=== PATIENT | female | born 1950 | race Caucasian/White ===

== ENCOUNTER → 2016-10-03 | Outpatient (CLI) | payer OTHER ==
[~2016-10-03] MED LIST: ATEN25TA PO; CYCL-259 PO; DICL75TA2 PO; GABA300C10 PO; HYDR1TAB14 PO; HYDR25TA6 PO; LEVO100T PO; METH500T7 PO; OMEP-110 PO; OXYC-302 PO; SIMV10TA3 PO
== END | disposition home or self-care (01) ==
LOC: LAB 10:22
PROVIDERS: ATTEND Internal Medicine Endocrinology, Diabetes & Metabolism
DX: E89.0 Postprocedural hypothyroidism (principal); R73.01 Impaired fasting glucose
CPT/HCPCS: 36415; 83036; 84443

== ENCOUNTER → 2017-02-06 | Outpatient (CLI) | payer OTHER | END | disposition home or self-care (01) | LOC: LAB 06:56 | PROVIDERS: ATTEND Internal Medicine Endocrinology, Diabetes & Metabolism | DX: E89.0 Postprocedural hypothyroidism (principal); R73.01 Impaired fasting glucose | CPT/HCPCS: 36415; 83036; 84439; 84443 ==

== ENCOUNTER 2017-03-06 06:02 | Day surgery (SDC) | payer OTHER ==
[~2017-03-06] VITALS: Ht 152.4 cm; Wt 95.9 kg
[~2017-03-06 06:02] MED LIST changes: +ACET-709 PO; +B CO PO; +CALC1CAP8 PO; +CHOL100011 PO; +IBUP200T64 PO; +LEVO112T4 PO; +OMEP20TA62 PO; +TURM500C4 PO; +UBID1CAP43 PO
[2017-03-06] MEDS ORDERED: LIDOCAINE 1%, 2ML ONE (06:48)
[2017-03-06] MEDS ORDERED: LACTATED RINGERS 1,000 ML IV SCH (06:58)
[2017-03-06 06:59] VITALS: BP 147/85
[2017-03-06] MEDS ORDERED: LIDOCAINE 1%, 2ML SQ PRN (07:00)
[2017-03-06] MEDS ORDERED: MIDAZOLAM 1 MG/ML, 2ML ONE (07:58)
[2017-03-06] MEDS ORDERED: FENTANYL PF 100 MCG/2ML ONE ×2 (07:58→09:39)
[2017-03-06] MEDS ORDERED: PROPOFOL 10 MG/ML, 20ML ONE (07:59)
[2017-03-06] MEDS ORDERED: METOCLOPRAMIDE 5 MG/ML, 2ML ONE (08:14)
[2017-03-06] MEDS ORDERED: DEXAMETHASONE 4 MG/ML, 1ML ONE (08:14)
[2017-03-06] MEDS ORDERED: CEFAZOLIN 1,000 MG ONE ×2 (08:14)
[2017-03-06] MEDS ORDERED: ONDANSETRON 2MG/ML, 2ML ONE (08:14)
[2017-03-06] MEDS ORDERED: ROCURONIUM 10 MG/ML ONE (08:14)
[2017-03-06] MEDS ORDERED: PROMETHAZINE 25 MG/ML, 1ML IV PRN (08:30)
[2017-03-06] MEDS ORDERED: MEPERIDINE/PF 25MG/0.5ML IVPush PRN (08:30)
[2017-03-06] MEDS ORDERED: ONDANSETRON 2MG/ML, 2ML IVPush PRN (08:30)
[2017-03-06] MEDS ORDERED: ALBUTEROL SULFATE 2.5 MG/3 ML NPPB PRN (08:30)
[2017-03-06] MEDS ORDERED: ACETAMINOPHEN 325 MG TABLET PO PRN (08:30)
[2017-03-06] MEDS ORDERED: EPHEDRINE 50 MG/ML, 1ML IVPush PRN (08:30)
[2017-03-06] MEDS ORDERED: METOPROLOL 1 MG/ML, 5ML IV PRN (08:30)
[2017-03-06] MEDS ORDERED: LABETALOL 5MG/ML, 20ML IV PRN (08:30)
[2017-03-06] MEDS ORDERED: OXYcodone 5 MG/5 ML ORAL.SOL UDC PO PRN (08:30)
[2017-03-06] MEDS ORDERED: hydrALAzine 20 MG/ML, 1ML IV PRN (08:30)
[2017-03-06] MEDS ORDERED: HYDROmorphone 1 MG/ML, 1ML IV PRN (08:30)
[2017-03-06] MEDS ORDERED: GLYCOPYRROLATE 0.2MG/1ML, 5ML ONE (08:56)
[2017-03-06] MEDS ORDERED: NEOSTIGMINE 1 MG/ML, 10ML ONE (08:56)
[2017-03-06] MEDS ORDERED: ROPIvacaine/PF 0.5%, 30 ML INFIL ONE (09:01)
[2017-03-06] MEDS ORDERED: NEOSPORIN OINT, 15GM TP ONE (09:05)
[2017-03-06] MEDS ORDERED: OXYcodone 5 MG/5 ML ORAL.SOL UDC ONE (09:39)
[2017-03-06] MEDS ORDERED: ACETAMINOPHEN 650 MG/20.3 ML UDC ONE (09:39)
[2017-03-06] MEDS: FENTANYL PF 100 MCG/2ML IV PRN ×4 (09:46→10:15)
[2017-03-06] MEDS ORDERED: KETOROLAC 30 MG/1 ML ONE (10:55)
[2017-03-06] MEDS ORDERED: KETOROLAC 30 MG/1 ML IVPush ONE (11:00)
== END 2017-03-06 11:45 ==
LOC: OUT 06:02
PROVIDERS: ATTEND Orthopaedic Surgery
DX: S83.241A Other tear of medial meniscus, current injury, right knee, initial encounter (principal); S83.281A Other tear of lateral meniscus, current injury, right knee, initial encounter; E03.9 Hypothyroidism, unspecified; I10 Essential (primary) hypertension; E66.9 Obesity, unspecified; Z68.41 Body mass index [BMI] 40.0-44.9, adult; X58.XXXA Exposure to other specified factors, initial encounter; Y93.89 Activity, other specified; Y92.89 Other specified places as the place of occurrence of the external cause
CPT/HCPCS: 29880; J0690; J1100; J1885; J2250; J2405; J2704; J2710; J2765; J2795; J3010; J3490; J7120

== ENCOUNTER → 2017-05-28 | Outpatient (CLI) | payer OTHER ==
[2017-05-28 07:16] LABS: BASOPHILS # (AUTO) 0.05 x10^3/uL (0-0.1); BASOPHILS % (AUTO) 1 % (0-1); EOSINOPHILS # (AUTO) 0.17 x10^3/uL (0-0.4); EOSINOPHILS % (AUTO) 2 % (1-7); LYMPHOCYTES # (AUTO) 2.54 x10^3/uL (1-3.4); LYMPHOCYTES % (AUTO) 27 % (22-44); MD NO; MEAN CORPUSCULAR HEMOGLOBIN 31.8 pg (27.0-34.8); MEAN CORPUSCULAR HGB CONC 33.8 g/dL (32.4-35.8); MEAN CORPUSCULAR VOLUME 94.1 fL (80-100); MEAN PLATELET VOLUME 8.5 fL (7.4-10.4); MONOCYTES # (AUTO) 0.61 x10^3/uL (0.2-0.8); MONOCYTES % (AUTO) 7 % (2-9); NEUTROPHILS % (AUTO) 64 % (42-75); PLATELET COUNT 289 x10^3/uL (130-400); RED CELL DISTRIBUTION WIDTH 12.7 % (9.6-15.2)
[2017-05-28 07:30] LABS: ALANINE AMINOTRANSFERASE 23 U/L (12-78); ALBUMIN 3.7 g/dL (3.4-5.0); ANION GAP 5 mmol/L (5-15); CALCIUM 8.8 mg/dL (8.5-10.1); CHLORIDE 102 mmol/L (98-107); CHOLESTEROL, TOTAL 164 mg/dL (140-239)
[2017-05-28 07:32] LABS: ALKALINE PHOSPHATASE 72 U/L (45-117); BILIRUBIN,TOTAL 0.8 mg/dL (0.2-1.0); CHOL/HDL RATIO 3.2; HDL CHOL % 32 % (28-40); HDL CHOLESTEROL (DIRECT) 52 mg/dL (40-60); LDL CHOLESTEROL,CALCULATED 90 mg/dL (54-169); LDL/HDL RATIO 1.7 (0.5-3.0); TOTAL PROTEIN 7.2 g/dL (6.4-8.2); TRIGLYCERIDES 108 mg/dL (50-200); VLDL CHOLESTEROL 22 mg/dL (0-25)
[2017-05-28 07:44] LABS: HEMOGLOBIN A1C 6.6 % (4.2-6.3)
[2017-05-28 08:27] LABS: MICROSCOPIC AUTO
== END | disposition home or self-care (01) ==
LOC: LAB 07:00
PROVIDERS: ATTEND Family Medicine
DX: Z00.00 Encounter for general adult medical examination without abnormal findings (principal); E78.5 Hyperlipidemia, unspecified; I10 Essential (primary) hypertension
CPT/HCPCS: 36415; 80053; 80061; 81001; 83036; 85025

== ENCOUNTER → 2017-10-09 | Outpatient (CLI) | payer OTHER ==
[2017-10-09 08:20] LABS: FREE T4 (FREE THYROXINE) 1.3 ng/dL (0.76-1.46); THYROID STIMULATING HORMONE 0.869 mIU/L (0.358-3.740)
[2017-10-09 08:51] LABS: HEMOGLOBIN A1C 6.8 % (4.2-6.3)
== END | disposition home or self-care (01) ==
LOC: LAB 07:48
PROVIDERS: ATTEND Internal Medicine Endocrinology, Diabetes & Metabolism
DX: E89.0 Postprocedural hypothyroidism (principal); R73.01 Impaired fasting glucose; I10 Essential (primary) hypertension; E78.5 Hyperlipidemia, unspecified
CPT/HCPCS: 36415; 83036; 84439; 84443

== ENCOUNTER → 2017-11-30 | Outpatient (CLI) | payer OTHER | END | disposition home or self-care (01) | LOC: CFH 13:12 | PROVIDERS: ATTEND Registered Nurse Registered Nurse First Assistant | DX: M99.13 Subluxation complex (vertebral) of lumbar region (principal); M47.817 Spondylosis without myelopathy or radiculopathy, lumbosacral region; M48.02 Spinal stenosis, cervical region | CPT/HCPCS: 72114; 72148 ==

== ENCOUNTER → 2018-01-31 | Outpatient (CLI) | payer OTHER ==
[2018-01-31 07:50] LABS: FREE T4 (FREE THYROXINE) 1.35 ng/dL (0.76-1.46); THYROID STIMULATING HORMONE 0.884 mIU/L (0.358-3.740)
[2018-01-31 07:57] LABS: HEMOGLOBIN A1C 6.2 % (4.2-6.3)
== END | disposition home or self-care (01) ==
LOC: LAB 07:06
PROVIDERS: ATTEND Internal Medicine Endocrinology, Diabetes & Metabolism
DX: E11.65 Type 2 diabetes mellitus with hyperglycemia (principal); E89.0 Postprocedural hypothyroidism
CPT/HCPCS: 36415; 83036; 84439; 84443

== ENCOUNTER → 2018-03-08 | Outpatient (CLI) | payer OTHER ==
[2018-03-08 14:44] LABS: BASOPHILS # (AUTO) 0.03 x10^3/uL (0-0.1); BASOPHILS % (AUTO) 0 % (0-1); EOSINOPHILS # (AUTO) 0.25 x10^3/uL (0-0.4); EOSINOPHILS % (AUTO) 3 % (1-7); LYMPHOCYTES # (AUTO) 2.23 x10^3/uL (1-3.4); LYMPHOCYTES % (AUTO) 28 % (22-44); MD NO; MEAN CORPUSCULAR HEMOGLOBIN 32.8 pg (27.0-34.8); MEAN CORPUSCULAR HGB CONC 34.4 g/dL (32.4-35.8); MEAN CORPUSCULAR VOLUME 95.3 fL (80-100); MEAN PLATELET VOLUME 8.8 fL (7.4-10.4); MONOCYTES % (AUTO) 6 % (2-9); NEUTROPHILS # (AUTO) 4.92 x10^3/uL (1.8-6.8); NEUTROPHILS % (AUTO) 62 % (42-75); PLATELET COUNT 293 x10^3/uL (130-400); RED CELL DISTRIBUTION WIDTH 12.7 % (9.6-15.2)
[2018-03-08 14:49] LABS: INTERNATIONAL NORMALIZED RATIO 0.95 (0.93-1.1); PROTHROMBIN TIME 9.9 Seconds (9.6-11.5)
[2018-03-08 14:55] LABS: CHLORIDE 104 mmol/L (98-107)
[2018-03-08 14:56] LABS: ALANINE AMINOTRANSFERASE 33 U/L (12-78); ALBUMIN 3.6 g/dL (3.4-5.0); ANION GAP 9 mmol/L (5-15); CALCIUM 8.7 mg/dL (8.5-10.1); CREATININE 0.72 mg/dL (0.55-1.02)
[2018-03-08 14:58] LABS: ALKALINE PHOSPHATASE 71 U/L (45-117); BILIRUBIN,TOTAL 0.4 mg/dL (0.2-1.0); TOTAL PROTEIN 7.4 g/dL (6.4-8.2)
[2018-03-08 15:41] LABS: CULTURE INDICATED? YES; MICROSCOPIC INDICATED
== END | disposition home or self-care (01) ==
LOC: STAR 13:20
PROVIDERS: ATTEND Neurological Surgery
DX: Z01.818 Encounter for other preprocedural examination (principal); M48.061 Spinal stenosis, lumbar region without neurogenic claudication; I10 Essential (primary) hypertension
CPT/HCPCS: 36415; 71046; 80053; 81001; 85025; 85610; 85730; 87086; 93005

== ENCOUNTER → 2018-03-13 | Outpatient (CLI) | payer OTHER | END | disposition home or self-care (01) | LOC: CFH 13:30 | PROVIDERS: ATTEND Family Medicine | DX: Z12.31 Encounter for screening mammogram for malignant neoplasm of breast (principal); Z80.3 Family history of malignant neoplasm of breast | CPT/HCPCS: 77067 ==

== ENCOUNTER 2018-03-21 12:24 | Observation (INO) | payer OTHER ==
[~2018-03-21] VITALS: Ht 152.4 cm; Wt 100.6 kg
[~2018-03-21 12:24] MED LIST changes: +BACITRACIN 50,000 UNIT ONE; +BUPIVACAINE/PF-EPI 0.25% 1:200K ONE; +THROMBIN 5,000 UNIT VIAL TP ONE; +VANCOMYCIN 1,000 MG ONE
[2018-03-21] MEDS ORDERED: LACTATED RINGERS 1,000 ML IV SCH (13:04)
[2018-03-21 13:09] VITALS: BP 137/96
[2018-03-21] MEDS ORDERED: FENTANYL PF 250 MCG/5ML ONE (16:31)
[2018-03-21] MEDS ORDERED: MIDAZOLAM 1 MG/ML, 2ML ONE (16:31)
[2018-03-21] MEDS ORDERED: ROCURONIUM 10 MG/ML,10ML ONE (17:07)
[2018-03-21] MEDS ORDERED: ONDANSETRON 2MG/ML, 2ML ONE (17:07)
[2018-03-21] MEDS ORDERED: PROPOFOL 10 MG/ML, 20ML ONE (17:07)
[2018-03-21] MEDS ORDERED: DEXAMETHASONE 4 MG/ML, 1ML ONE (17:07)
[2018-03-21] MEDS ORDERED: CEFAZOLIN 1,000 MG ONE (17:07)
[2018-03-21] MEDS ORDERED: ACETAMINOPHEN 325 MG TABLET PO PRN (18:30)
[2018-03-21] MEDS ORDERED: KETOROLAC 30 MG/1 ML IV PRN (18:30)
[2018-03-21] MEDS ORDERED: LABETALOL 5MG/ML, 20ML IV PRN (18:30)
[2018-03-21] MEDS ORDERED: HYDROmorphone 1 MG/ML, 1ML IV PRN (18:30)
[2018-03-21] MEDS ORDERED: hydrALAzine 20 MG/ML, 1ML IV PRN (18:30)
[2018-03-21] MEDS ORDERED: LORazepam 2 MG/ML, 1ML IVPush PRN (18:30)
[2018-03-21] MEDS ORDERED: ALBUTEROL SULFATE 2.5 MG/3 ML NPPB PRN (18:30)
[2018-03-21] MEDS ORDERED: PROMETHAZINE 25 MG/ML, 1ML IV PRN (18:30)
[2018-03-21] MEDS ORDERED: OXYcodone 5 MG/5 ML ORAL.SOL UDC PO PRN (18:30)
[2018-03-21] MEDS ORDERED: MEPERIDINE/PF 25MG/0.5ML IVPush PRN (18:30)
[2018-03-21] MEDS ORDERED: SUGAMMADEX 200 MG/2 ML IVPush ONE (18:59)
[2018-03-21] MEDS ORDERED: HYDROcodone/APAP 10/325 MG TABLET PO PRN (19:00)
[2018-03-21] MEDS ORDERED: MEPERIDINE/PF 100 MG/ML IM PRN (19:00)
[2018-03-21] MEDS ORDERED: DIPHENHYDRAMINE 50 MG/ML, 1ML IVPush PRN (19:00)
[2018-03-21] MEDS ORDERED: HYDROmorphone 1 MG/ML, 1ML IVPush PRN (19:00)
[2018-03-21] MEDS ORDERED: ONDANSETRON 2MG/ML, 2ML IVPush PRN (19:00)
[2018-03-21] MEDS ORDERED: BISACODYL 10 MG SUPP PR PRN (19:00)
[2018-03-21] MEDS ORDERED: MAGNESIUM HYDROXIDE 8%, 30ML UDC PO PRN (19:00)
[2018-03-21] MEDS ORDERED: PROMETHAZINE 25 MG/ML, 1ML IM PRN (19:00)
[2018-03-21] MEDS ORDERED: PHARMACY MAY ADJ FOR RENAL FX MC PRN (19:00)
[2018-03-21] MEDS ORDERED: OXYcodone 5 MG/5 ML ORAL.SOL UDC ONE (19:04)
[2018-03-21] MEDS ORDERED: FENTANYL PF 100 MCG/2ML ONE (19:04)
[2018-03-21] MEDS ORDERED: ACETAMINOPHEN 650 MG/20.3 ML UDC ONE (19:04)
[2018-03-21] MEDS ORDERED: MEPERIDINE/PF 50 MG/ML ONE (19:05)
[2018-03-21] MEDS: FENTANYL PF 100 MCG/2ML IV PRN ×2 (19:29→19:42)
[2018-03-21] MEDS: SODIUM CHLORIDE FLUSH 10ML SYR IVF SCH (21:00)
[2018-03-22] MEDS: CEFAZOLIN PMX 1GM/50ML 50 ML IVPB SCH ×2 (00:18→09:43)
[2018-03-22] MEDS: NS + 20MEQ KCL 1,000 ML IV SCH ×2 (00:18→05:00)
[2018-03-22] MEDS: GABAPENTIN 300 MG CAPSULE PO SCH ×2 (00:19→08:08)
[2018-03-22] MEDS: OXYcodone/APAP 5/325MG TABLET PO PRN ×3 (00:22→10:22)
[2018-03-22 00:48] VITALS: BP 125/67
[2018-03-22 05:12] VITALS: BP 121/69
[2018-03-22 07:35] VITALS: BP 124/58
[2018-03-22] MEDS: SODIUM CHLORIDE FLUSH 10ML SYR IVF SCH (08:09)
[2018-03-22] MEDS ORDERED: ATENOLOL 25 MG TABLET PO SCH (09:00)
[2018-03-22] MEDS ORDERED: HYDROCHLOROTHIAZIDE 25 MG TABLET PO SCH (09:00)
[2018-03-22] MEDS ORDERED: SENNA/DOCUSATE TABLET PO SCH (09:00)
[2018-03-22] MEDS ORDERED: OXYC-302 PO (09:27)
[2018-03-22] MEDS ORDERED: TIZA2CAP2 PO (09:28)
[2018-03-22] MEDS ORDERED: POLY17PO5 PO (09:29)
[2018-03-22] MEDS ORDERED: CEFAZOLIN PMX 1GM/50ML 50 ML ONE (09:42)
== END 2018-03-22 10:55 | disposition home or self-care (01) ==
LOC: OUT 12:24 → ORIP 18:32 → 4NOR 20:10 → DCLOUNGE 03-22 10:10
PROVIDERS: ADMIT Neurological Surgery; ATTEND Neurological Surgery
DX: M48.07 Spinal stenosis, lumbosacral region (principal); M48.062 Spinal stenosis, lumbar region with neurogenic claudication; I10 Essential (primary) hypertension; E78.00 Pure hypercholesterolemia, unspecified; M19.90 Unspecified osteoarthritis, unspecified site; M51.37 Other intervertebral disc degeneration, lumbosacral region; Z79.899 Other long term (current) drug therapy; Z87.891 Personal history of nicotine dependence
CPT/HCPCS: 36415; 63047; 63048; 72100; 84132; 96365; 97161; 97166; 97535; G0378; J0690; J1100; J2175; J2250; J2405; J2704; J3010; J3370; J3480; J7120

== ENCOUNTER → 2018-05-22 | Outpatient (CLI) | payer OTHER ==
[~2018-05-22] MED LIST changes: -BACITRACIN 50,000 UNIT ONE; -BUPIVACAINE/PF-EPI 0.25% 1:200K ONE; -DICL75TA2 PO; +DICL75TA3 PO; +POLY17PO5 PO; -THROMBIN 5,000 UNIT VIAL TP ONE; +TIZA2CAP2 PO; -VANCOMYCIN 1,000 MG ONE
[2018-05-22 07:13] LABS: BASOPHILS # (AUTO) 0.04 x10^3/uL (0-0.1); BASOPHILS % (AUTO) 1 % (0-1); EOSINOPHILS # (AUTO) 0.22 x10^3/uL (0-0.4); EOSINOPHILS % (AUTO) 3 % (1-7); LYMPHOCYTES # (AUTO) 2.04 x10^3/uL (1-3.4); LYMPHOCYTES % (AUTO) 25 % (22-44); MD NO; MEAN CORPUSCULAR HEMOGLOBIN 31.3 pg (27.0-34.8); MEAN CORPUSCULAR HGB CONC 33.3 g/dL (32.4-35.8); MEAN PLATELET VOLUME 8.7 fL (7.4-10.4); MONOCYTES # (AUTO) 0.48 x10^3/uL (0.2-0.8); MONOCYTES % (AUTO) 6 % (2-9); NEUTROPHILS # (AUTO) 5.31 x10^3/uL (1.8-6.8); NEUTROPHILS % (AUTO) 66 % (42-75); PLATELET COUNT 307 x10^3/uL (130-400); RED BLOOD COUNT 4.19 x10^6/uL (3.82-5.3); RED CELL DISTRIBUTION WIDTH 12.4 % (9.6-15.2)
[2018-05-22 07:26] LABS: ALANINE AMINOTRANSFERASE 25 U/L (12-78); ANION GAP 7 mmol/L (5-15); CALCIUM 9.2 mg/dL (8.5-10.1); CHLORIDE 105 mmol/L (98-107); CHOLESTEROL, TOTAL 159 mg/dL (140-239); CREATININE 0.68 mg/dL (0.55-1.02); TRIGLYCERIDES 93 mg/dL (50-200); VLDL CHOLESTEROL 19 mg/dL (0-25)
[2018-05-22 07:36] LABS: ALKALINE PHOSPHATASE 70 U/L (45-117); BILIRUBIN,TOTAL 0.5 mg/dL (0.2-1.0); CHOL/HDL RATIO 3.1; HDL CHOL % 32 % (28-40); HDL CHOLESTEROL (DIRECT) 51 mg/dL (40-60); LDL CHOLESTEROL,CALCULATED 89 mg/dL (54-169); LDL/HDL RATIO 1.7 (0.5-3.0); TOTAL PROTEIN 7.3 g/dL (6.4-8.2)
[2018-05-22 07:53] LABS: HEMOGLOBIN A1C 6.7 % (4.2-6.3)
[2018-05-22 08:01] LABS: MICROSCOPIC AUTO
== END | disposition home or self-care (01) ==
LOC: LAB 06:58
PROVIDERS: ATTEND Family Medicine
DX: Z00.00 Encounter for general adult medical examination without abnormal findings (principal); D64.9 Anemia, unspecified; R53.83 Other fatigue; E55.9 Vitamin D deficiency, unspecified
CPT/HCPCS: 36415; 80053; 80061; 81001; 83036; 84443; 85025

== ENCOUNTER → 2018-06-04 | Outpatient (CLI) | payer OTHER ==
[2018-06-04 10:58] LABS: FREE T4 (FREE THYROXINE) 1.34 ng/dL (0.76-1.46); THYROID STIMULATING HORMONE 1.99 mIU/L (0.358-3.740)
[2018-06-04 11:09] LABS: HEMOGLOBIN A1C 6.6 % (4.2-6.3)
== END | disposition home or self-care (01) ==
LOC: LAB 10:13
PROVIDERS: ATTEND Internal Medicine Endocrinology, Diabetes & Metabolism
DX: E11.65 Type 2 diabetes mellitus with hyperglycemia (principal); E89.0 Postprocedural hypothyroidism
CPT/HCPCS: 36415; 83036; 84439; 84443

== ENCOUNTER → 2018-09-04 | Outpatient (CLI) | payer OTHER ==
[2018-09-04 07:40] LABS: FREE T4 (FREE THYROXINE) 1.32 ng/dL (0.76-1.46); THYROID STIMULATING HORMONE 1.78 mIU/L (0.358-3.740)
[2018-09-04 08:36] LABS: HEMOGLOBIN A1C 6.3 % (4.2-6.3)
== END | disposition home or self-care (01) ==
LOC: LAB 07:03
PROVIDERS: ATTEND Internal Medicine Endocrinology, Diabetes & Metabolism
DX: E11.65 Type 2 diabetes mellitus with hyperglycemia (principal); E89.0 Postprocedural hypothyroidism
CPT/HCPCS: 36415; 83036; 84439; 84443

== ENCOUNTER 2018-12-04 07:06 | Outpatient (CLI) | payer OTHER ==
[~2018-12-04 07:06] MED LIST changes: -HYDR1TAB14 PO; +HYDR1TAB15 PO
[2018-12-04 07:45] LABS: FREE T4 (FREE THYROXINE) 1.08 ng/dL (0.76-1.46)
[2018-12-04 10:02] LABS: HEMOGLOBIN A1C 6.7 % (4.2-6.3)
== END 2018-12-04 23:59 | disposition home or self-care (01) ==
LOC: LAB 07:06
PROVIDERS: ATTEND Physician Assistant Medical
DX: E89.0 Postprocedural hypothyroidism (principal); E11.65 Type 2 diabetes mellitus with hyperglycemia
CPT/HCPCS: 36415; 83036; 84439; 84443

== ENCOUNTER → 2019-03-20 | Outpatient (CLI) | payer OTHER ==
[2019-03-20 07:36] LABS: FREE T4 (FREE THYROXINE) 1.35 ng/dL (0.76-1.46)
[2019-03-20 08:03] LABS: HEMOGLOBIN A1C 6.2 % (4.2-6.3)
== END | disposition home or self-care (01) ==
LOC: LAB 07:04
PROVIDERS: ATTEND Internal Medicine Endocrinology, Diabetes & Metabolism
DX: E89.0 Postprocedural hypothyroidism (principal); E11.65 Type 2 diabetes mellitus with hyperglycemia
CPT/HCPCS: 36415; 83036; 84439; 84443

== ENCOUNTER → 2019-03-26 | Outpatient (CLI) | payer OTHER | END | disposition home or self-care (01) | LOC: CFH 13:17 | PROVIDERS: ATTEND Family Medicine | DX: Z12.31 Encounter for screening mammogram for malignant neoplasm of breast (principal); N64.89 Other specified disorders of breast | CPT/HCPCS: 77067 ==

== ENCOUNTER 2019-06-18 07:16 | Outpatient (CLI) | payer OTHER ==
[~2019-06-18 07:16] MED LIST changes: +SIMV10TA18 PO; -SIMV10TA3 PO
[2019-06-18 07:37] LABS: BASOPHILS # (AUTO) 0.04 x10^3/uL (0-0.1); BASOPHILS % (AUTO) 0 % (0-1); EOSINOPHILS # (AUTO) 0.27 x10^3/uL (0-0.4); EOSINOPHILS % (AUTO) 3 % (1-7); LYMPHOCYTES # (AUTO) 2.45 x10^3/uL (1-3.4); LYMPHOCYTES % (AUTO) 27 % (22-44); MD NO; MEAN CORPUSCULAR HEMOGLOBIN 31.8 pg (27.0-34.8); MEAN CORPUSCULAR HGB CONC 33.6 g/dL (32.4-35.8); MEAN CORPUSCULAR VOLUME 94.7 fL (80-100); MEAN PLATELET VOLUME 8.4 fL (7.4-10.4); MONOCYTES # (AUTO) 0.55 x10^3/uL (0.2-0.8); MONOCYTES % (AUTO) 6 % (2-9); NEUTROPHILS # (AUTO) 5.83 x10^3/uL (1.8-6.8); NEUTROPHILS % (AUTO) 64 % (42-75); PLATELET COUNT 332 x10^3/uL (130-400); RED BLOOD COUNT 4.32 x10^6/uL (3.82-5.3); RED CELL DISTRIBUTION WIDTH 13.1 % (9.6-15.2)
[2019-06-18 07:54] LABS: FREE T4 (FREE THYROXINE) 1.29 ng/dL (0.76-1.46)
[2019-06-18 08:17] LABS: ALANINE AMINOTRANSFERASE 23 U/L (12-78); ALBUMIN 3.9 g/dL (3.4-5.0); ANION GAP 5 mmol/L (5-15); CALCIUM 9.2 mg/dL (8.5-10.1); CHLORIDE 104 mmol/L (98-107)
[2019-06-18 08:20] LABS: ALKALINE PHOSPHATASE 73 U/L (45-117); BILIRUBIN,TOTAL 0.7 mg/dL (0.2-1.0); CHOL/HDL RATIO 2.9; CHOLESTEROL, TOTAL 159 mg/dL (140-239); CREATININE 0.65 mg/dL (0.55-1.02); HDL CHOL % 35 % (28-40); HDL CHOLESTEROL (DIRECT) 55 mg/dL (40-60); LDL CHOLESTEROL,CALCULATED 87 mg/dL (54-169); LDL/HDL RATIO 1.6 (0.5-3.0); TOTAL PROTEIN 7.5 g/dL (6.4-8.2); TRIGLYCERIDES 84 mg/dL (50-200); VLDL CHOLESTEROL 17 mg/dL (0-25)
== END 2019-06-18 23:59 | disposition home or self-care (01) ==
LOC: LAB 07:16
PROVIDERS: ATTEND Internal Medicine Endocrinology, Diabetes & Metabolism
DX: I10 Essential (primary) hypertension (principal); E11.65 Type 2 diabetes mellitus with hyperglycemia; E03.9 Hypothyroidism, unspecified; E78.00 Pure hypercholesterolemia, unspecified
CPT/HCPCS: 36415; 80053; 80061; 83036; 84439; 84443; 85025

== ENCOUNTER → 2019-06-27 | Outpatient (CLI) | payer OTHER ==
[~2019-06-27] MED LIST changes: +METF500T17 PO
[2019-06-27 14:43] LABS: INTERNATIONAL NORMALIZED RATIO 0.96 (0.93-1.1); PROTHROMBIN TIME 10.2 Seconds (9.6-11.5)
[2019-06-27 14:54] LABS: MICROSCOPIC AUTO
[2019-06-27 14:57] LABS: CULTURE INDICATED? YES
== END | disposition home or self-care (01) ==
LOC: STAR 13:35
PROVIDERS: ATTEND Neurological Surgery
DX: Z01.818 Encounter for other preprocedural examination (principal); M43.16 Spondylolisthesis, lumbar region
CPT/HCPCS: 36415; 71046; 81001; 85610; 85730; 87086; 93005

== ENCOUNTER → 2019-06-30 | Outpatient (CLI) | payer OTHER | END | disposition home or self-care (01) | LOC: CFH 12:54 | PROVIDERS: ATTEND Nurse Practitioner Family | DX: M85.88 Other specified disorders of bone density and structure, other site (principal); N95.8 Other specified menopausal and perimenopausal disorders | CPT/HCPCS: 77080 ==

== ENCOUNTER → 2019-09-05 | Outpatient (CLI) | payer OTHER ==
[2019-09-05 10:09] LABS: MICROSCOPIC NOT IND
[2019-09-05 10:10] LABS: BASOPHILS # (AUTO) 0.04 x10^3/uL (0-0.1); BASOPHILS % (AUTO) 1 % (0-1); EOSINOPHILS # (AUTO) 0.24 x10^3/uL (0-0.4); EOSINOPHILS % (AUTO) 3 % (1-7); LYMPHOCYTES # (AUTO) 2.02 x10^3/uL (1-3.4); LYMPHOCYTES % (AUTO) 24 % (22-44); MD NO; MEAN CORPUSCULAR HEMOGLOBIN 32.2 pg (27.0-34.8); MEAN CORPUSCULAR HGB CONC 33.7 g/dL (32.4-35.8); MEAN CORPUSCULAR VOLUME 95.5 fL (80-100); MEAN PLATELET VOLUME 9.3 fL (7.4-10.4); MONOCYTES # (AUTO) 0.56 x10^3/uL (0.2-0.8); MONOCYTES % (AUTO) 7 % (2-9); NEUTROPHILS # (AUTO) 5.51 x10^3/uL (1.8-6.8); NEUTROPHILS % (AUTO) 66 % (42-75); PLATELET COUNT 305 x10^3/uL (130-400); RED BLOOD COUNT 4.46 x10^6/uL (3.82-5.3); RED CELL DISTRIBUTION WIDTH 13.2 % (9.6-15.2)
[2019-09-05 10:10] LABS: CULTURE INDICATED? NO
[2019-09-05 10:19] LABS: ALANINE AMINOTRANSFERASE 29 U/L (12-78); ALBUMIN 3.9 g/dL (3.4-5.0); ANION GAP 6 mmol/L (5-15); CALCIUM 9.1 mg/dL (8.5-10.1); CHLORIDE 107 mmol/L (98-107); INTERNATIONAL NORMALIZED RATIO 0.93 (0.93-1.1); PROTHROMBIN TIME 9.9 Seconds (9.6-11.5)
[2019-09-05 10:21] LABS: ALKALINE PHOSPHATASE 65 U/L (45-117); BILIRUBIN,TOTAL 0.7 mg/dL (0.2-1.0); TOTAL PROTEIN 7.7 g/dL (6.4-8.2)
== END | disposition home or self-care (01) ==
LOC: STAR 08:34
PROVIDERS: ATTEND Neurological Surgery
DX: Z01.818 Encounter for other preprocedural examination (principal); M43.16 Spondylolisthesis, lumbar region
CPT/HCPCS: 36415; 80053; 81003; 85025; 85610; 85730

== ENCOUNTER 2019-09-09 06:20 | Inpatient (IN) | payer OTHER ==
[~2019-09-09] VITALS: Ht 154.9 cm; Wt 106.0 kg
[2019-09-09] MEDS ORDERED: VANCOMYCIN 1,000 MG ONE ×2 (07:04)
[2019-09-09] MEDS ORDERED: BACITRACIN 50,000 UNIT ONE (07:04)
[2019-09-09] MEDS ORDERED: BUPIVACAINE/PF-EPI 0.5% 1:200K ONE (07:04)
[2019-09-09] MEDS ORDERED: BUPIVACAINE/PF-EPI 0.25% 1:200K ONE (07:04)
[2019-09-09] MEDS ORDERED: GABAPENTIN 300 MG CAPSULE PO STA (07:51)
[2019-09-09] MEDS ORDERED: ACETAMINOPHEN 500 MG TABLET PO STA (07:51)
[2019-09-09] MEDS ORDERED: LACTATED RINGERS 1,000 ML IV SCH (07:52)
[2019-09-09] MEDS ORDERED: CHLORHEXIDINE 15 ML UDC ONE (07:56)
[2019-09-09] MEDS ORDERED: CHLORHEXIDINE 15 ML UDC MM ONE (08:00)
[2019-09-09] MEDS ORDERED: GABA300C10 PO (08:04)
[2019-09-09] MEDS ORDERED: ACET-1600 PO (08:04)
[2019-09-09] MEDS ORDERED: SUCCINYLCHOLINE 20 MG/ML, 10ML ONE (08:19)
[2019-09-09] MEDS ORDERED: ROCURONIUM 10MG/ML,5ML ONE (08:19)
[2019-09-09] MEDS ORDERED: PROPOFOL 10 MG/ML, 20ML ONE (08:19)
[2019-09-09] MEDS ORDERED: LIDOCAINE-MPF 2% ,5ML ONE (08:21)
[2019-09-09] MEDS ORDERED: MIDAZOLAM 1 MG/ML, 2ML ONE (08:22)
[2019-09-09] MEDS ORDERED: FENTANYL PF 250 MCG/5ML ONE (08:22)
[2019-09-09] MEDS ORDERED: PROPOFOL 50 ML ONE ×3 (08:23→12:20)
[2019-09-09] MEDS ORDERED: OXYcodone 5 MG/5 ML ORAL.SOL UDC PO PRN (09:30)
[2019-09-09] MEDS ORDERED: MEPERIDINE/PF 25MG/ML,1ML IVPush PRN (09:30)
[2019-09-09] MEDS ORDERED: LORazepam 2 MG/ML, 1ML IVPush PRN (09:30)
[2019-09-09] MEDS ORDERED: ONDANSETRON 2MG/ML, 2ML IV PRN (09:30)
[2019-09-09] MEDS ORDERED: LABETALOL 5MG/ML, 20ML IV PRN (09:30)
[2019-09-09] MEDS ORDERED: HYDROmorphone 2 MG/ML, 1ML IVPush PRN (09:30)
[2019-09-09] MEDS ORDERED: FENTANYL PF 100 MCG/2ML IV PRN (09:30)
[2019-09-09] MEDS ORDERED: hydrALAzine 20 MG/ML, 1ML IV PRN (09:30)
[2019-09-09] MEDS ORDERED: DEXAMETHASONE 4 MG/ML, 1ML ONE (09:47)
[2019-09-09] MEDS ORDERED: PHENYLEPHRINE 10 MG/ML ONE (09:47)
[2019-09-09] MEDS ORDERED: ONDANSETRON 2MG/ML, 2ML ONE (09:47)
[2019-09-09] MEDS ORDERED: CEFAZOLIN 1,000 MG ONE ×2 (10:07)
[2019-09-09] MEDS ORDERED: BISACODYL 10 MG SUPP PR PRN (13:30)
[2019-09-09] MEDS ORDERED: DIPHENHYDRAMINE 50 MG/ML, 1ML IVPush PRN (13:30)
[2019-09-09] MEDS ORDERED: MEPERIDINE/PF 100 MG/ML IM PRN (13:30)
[2019-09-09] MEDS ORDERED: SENNA/DOCUSATE TABLET PO PRN (13:30)
[2019-09-09] MEDS ORDERED: GABAPENTIN 300 MG CAPSULE PO PRN (13:30)
[2019-09-09] MEDS ORDERED: ONDANSETRON 2MG/ML, 2ML IVPush PRN (13:30)
[2019-09-09] MEDS ORDERED: HYDROmorphone PCA 30 MG/30 ML IV PRN (13:30)
[2019-09-09] MEDS ORDERED: PROMETHAZINE 25 MG/ML, 1ML IM PRN (13:30)
[2019-09-09] MEDS ORDERED: METHOCARBAMOL 1,000 MG in DEXTROSE 5% 100 ML IV ONE (13:30)
[2019-09-09] MEDS ORDERED: OXYcodone/APAP 5/325MG TABLET PO PRN (13:30)
[2019-09-09] MEDS ORDERED: MAGNESIUM HYDROXIDE 8%, 30ML UDC PO PRN (13:30)
[2019-09-09] MEDS ORDERED: PHARMACY MAY ADJ FOR RENAL FX MC PRN (13:30)
[2019-09-09] MEDS ORDERED: DIAZEPAM 5 MG TABLET PO PRN (13:30)
[2019-09-09] MEDS ORDERED: HYDROmorphone 2 MG/ML, 1ML ONE (13:55)
[2019-09-09] MEDS ORDERED: OXYcodone 5 MG/5 ML ORAL.SOL UDC ONE (13:56)
[2019-09-09] MEDS: HYDROmorphone 1 MG/ML, 1ML INJ IVPush PRN ×2 (13:58→14:27)
[2019-09-09 15:05] VITALS: BP 113/68
[2019-09-09] MEDS: NS + 20MEQ KCL 1,000 ML IV SCH (16:34)
[2019-09-09] MEDS: TIZANIDINE 4MG TABLET PO SCH (16:34)
[2019-09-09] MEDS: CEFAZOLIN PMX 1GM/50ML 50 ML IVPB SCH (17:42)
[2019-09-09 19:19] VITALS: BP 116/73
[2019-09-09] MEDS: SODIUM CHLORIDE FLUSH 10ML SYR IVF SCH (21:34)
[2019-09-09] MEDS: metFORMIN 500 MG TABLET PO SCH (21:34)
[2019-09-09] MEDS: SIMVASTATIN 10 MG TABLET PO SCH (21:34)
[2019-09-10 00:07] VITALS: BP 111/67
[2019-09-10] MEDS: TIZANIDINE 4MG TABLET PO SCH ×3 (02:19→17:48)
[2019-09-10] MEDS: CEFAZOLIN PMX 1GM/50ML 50 ML IVPB SCH (02:19)
[2019-09-10 03:50] VITALS: BP 110/63
[2019-09-10] MEDS: LEVOTHYROXINE 100 MCG TABLET PO SCH (06:00)
[2019-09-10 06:09] LABS: ANION GAP 7 mmol/L (5-15); CALCIUM 7.9 mg/dL (8.5-10.1); CHLORIDE 102 mmol/L (98-107); CREATININE 0.88 mg/dL (0.55-1.02)
[2019-09-10] MEDS: LEVOTHYROXINE 112 MCG TABLET PO SCH (06:12)
[2019-09-10 06:20] LABS: BASOPHILS % (AUTO) 0 % (0-1); EOSINOPHILS % (AUTO) 0 % (1-7); LYMPHOCYTES # (AUTO) 0.88 x10^3/uL (1-3.4); LYMPHOCYTES % (AUTO) 8 % (22-44); MD NO; MEAN CORPUSCULAR HEMOGLOBIN 32.3 pg (27.0-34.8); MEAN CORPUSCULAR HGB CONC 33.7 g/dL (32.4-35.8); MEAN PLATELET VOLUME 9.4 fL (7.4-10.4); MONOCYTES # (AUTO) 0.68 x10^3/uL (0.2-0.8); MONOCYTES % (AUTO) 6 % (2-9); NEUTROPHILS # (AUTO) 9.19 x10^3/uL (1.8-6.8); NEUTROPHILS % (AUTO) 86 % (42-75); PLATELET COUNT 233 x10^3/uL (130-400); RED BLOOD COUNT 3.12 x10^6/uL (3.82-5.3); RED CELL DISTRIBUTION WIDTH 13.5 % (9.6-15.2)
[2019-09-10] MEDS: NS + 20MEQ KCL 1,000 ML IV SCH ×2 (06:28→19:10)
[2019-09-10 07:19] VITALS: BP 110/62
[2019-09-10] MEDS: HYDROCHLOROTHIAZIDE 25 MG TABLET PO SCH (09:07)
[2019-09-10] MEDS: ATENOLOL 25 MG TABLET PO SCH (09:08)
[2019-09-10] MEDS: SODIUM CHLORIDE FLUSH 10ML SYR IVF SCH ×2 (09:08→21:00)
[2019-09-10 13:05] VITALS: BP 111/65
[2019-09-10 19:45] VITALS: BP 91/51
[2019-09-10] MEDS: metFORMIN 500 MG TABLET PO SCH (21:19)
[2019-09-10] MEDS: SIMVASTATIN 10 MG TABLET PO SCH (21:19)
[2019-09-11 00:41] VITALS: BP 122/62
[2019-09-11] MEDS: NS + 20MEQ KCL 1,000 ML IV SCH ×3 (01:42→23:48)
[2019-09-11] MEDS: TIZANIDINE 4MG TABLET PO SCH ×4 (02:18→20:57)
[2019-09-11 04:57] LABS: ANION GAP 6 mmol/L (5-15); BASOPHILS # (AUTO) 0.02 x10^3/uL (0-0.1); BASOPHILS % (AUTO) 0 % (0-1); CALCIUM 7.5 mg/dL (8.5-10.1); CHLORIDE 102 mmol/L (98-107); CREATININE 0.67 mg/dL (0.55-1.02); EOSINOPHILS # (AUTO) 0.03 x10^3/uL (0-0.4); EOSINOPHILS % (AUTO) 0 % (1-7); LYMPHOCYTES # (AUTO) 1.66 x10^3/uL (1-3.4); LYMPHOCYTES % (AUTO) 20 % (22-44); MD NO; MEAN CORPUSCULAR HEMOGLOBIN 32.2 pg (27.0-34.8); MEAN CORPUSCULAR HGB CONC 33.7 g/dL (32.4-35.8); MEAN CORPUSCULAR VOLUME 95.6 fL (80-100); MEAN PLATELET VOLUME 8.8 fL (7.4-10.4); MONOCYTES # (AUTO) 0.67 x10^3/uL (0.2-0.8); MONOCYTES % (AUTO) 8 % (2-9); NEUTROPHILS # (AUTO) 5.83 x10^3/uL (1.8-6.8); NEUTROPHILS % (AUTO) 71 % (42-75); PLATELET COUNT 205 x10^3/uL (130-400); RED BLOOD COUNT 2.83 x10^6/uL (3.82-5.3); RED CELL DISTRIBUTION WIDTH 13.3 % (9.6-15.2)
[2019-09-11] MEDS: LEVOTHYROXINE 100 MCG TABLET PO SCH (05:53)
[2019-09-11] MEDS: LEVOTHYROXINE 112 MCG TABLET PO SCH (06:00)
[2019-09-11] MEDS ORDERED: HYDROmorphone PCA 30 MG/30 ML IV PRN (08:30)
[2019-09-11 08:45] VITALS: BP 124/76
[2019-09-11] MEDS: ATENOLOL 25 MG TABLET PO SCH (08:47)
[2019-09-11] MEDS: HYDROCHLOROTHIAZIDE 25 MG TABLET PO SCH (08:47)
[2019-09-11] MEDS: SODIUM CHLORIDE FLUSH 10ML SYR IVF SCH ×2 (08:48→21:00)
[2019-09-11 13:02] VITALS: BP 131/72
[2019-09-11 19:20] VITALS: BP 114/71
[2019-09-11] MEDS: metFORMIN 500 MG TABLET PO SCH (20:57)
[2019-09-11] MEDS: HYDROcodone/APAP 10/325 MG TABLET PO PRN (20:58)
[2019-09-11] MEDS: SIMVASTATIN 10 MG TABLET PO SCH (20:59)
[2019-09-11 21:30] VITALS: BP 126/78
[2019-09-12 00:20] VITALS: BP 99/61
[2019-09-12] MEDS: HYDROcodone/APAP 10/325 MG TABLET PO PRN ×3 (02:23→13:24)
[2019-09-12 05:20] LABS: BASOPHILS # (AUTO) 0.03 x10^3/uL (0-0.1); BASOPHILS % (AUTO) 0 % (0-1); EOSINOPHILS # (AUTO) 0.12 x10^3/uL (0-0.4); EOSINOPHILS % (AUTO) 1 % (1-7); LYMPHOCYTES % (AUTO) 20 % (22-44); MD NO; MEAN CORPUSCULAR HEMOGLOBIN 32.4 pg (27.0-34.8); MEAN CORPUSCULAR HGB CONC 34.1 g/dL (32.4-35.8); MEAN CORPUSCULAR VOLUME 95.2 fL (80-100); MEAN PLATELET VOLUME 8.8 fL (7.4-10.4); MONOCYTES # (AUTO) 0.77 x10^3/uL (0.2-0.8); MONOCYTES % (AUTO) 9 % (2-9); NEUTROPHILS # (AUTO) 6.16 x10^3/uL (1.8-6.8); NEUTROPHILS % (AUTO) 69 % (42-75); PLATELET COUNT 210 x10^3/uL (130-400); RED BLOOD COUNT 2.94 x10^6/uL (3.82-5.3); RED CELL DISTRIBUTION WIDTH 13.2 % (9.6-15.2)
[2019-09-12 05:26] LABS: ANION GAP 4 mmol/L (5-15); CHLORIDE 98 mmol/L (98-107); CREATININE 0.63 mg/dL (0.55-1.02)
[2019-09-12] MEDS ORDERED: LEVOTHYROXINE 112 MCG TABLET PO SCH (06:00)
[2019-09-12] MEDS ORDERED: POTASSIUM CHLORIDE 20 MEQ TAB.ER.PRT PO ONE (08:00)
[2019-09-12] MEDS ORDERED: HYDR-3245 PO (08:01)
[2019-09-12] MEDS ORDERED: TIZA4TAB2 PO (08:01)
[2019-09-12 08:19] VITALS: BP 137/71
[2019-09-12] MEDS: TIZANIDINE 4MG TABLET PO SCH (08:29)
[2019-09-12] MEDS: SODIUM CHLORIDE FLUSH 10ML SYR IVF SCH (08:29)
[2019-09-12] MEDS: ATENOLOL 25 MG TABLET PO SCH (08:30)
[2019-09-12] MEDS: HYDROCHLOROTHIAZIDE 25 MG TABLET PO SCH (08:30)
[2019-09-12 13:21] VITALS: BP 135/73
[2019-09-13] MEDS ORDERED: LEVOTHYROXINE 100 MCG TABLET PO SCH (06:00)
== END 2019-09-12 14:15 | disposition home or self-care (01) | DRG 455 ==
LOC: ORIP 06:20 → 4NE 14:58
PROVIDERS: ADMIT Neurological Surgery; ATTEND Neurological Surgery
PROC: 0SG3071 Fusion of Lumbosacral Joint with Autologous Tissue Substitute, Posterior Approach, Posterior Column, Open Approach (ICD-10-PCS; 2019-09-09)
PROC: 01NB0ZZ Release Lumbar Nerve, Open Approach (ICD-10-PCS; 2019-09-09)
PROC: 3E0U0GB Introduction of Recombinant Bone Morphogenetic Protein into Joints, Open Approach (ICD-10-PCS; 2019-09-09)
PROC: 0SG30AJ Fusion of Lumbosacral Joint with Interbody Fusion Device, Posterior Approach, Anterior Column, Open Approach (ICD-10-PCS; principal; 2019-09-09 09:00)
DX: M43.17 Spondylolisthesis, lumbosacral region (principal); M48.062 Spinal stenosis, lumbar region with neurogenic claudication; M51.36 Other intervertebral disc degeneration, lumbar region; Z72.89 Other problems related to lifestyle
CPT/HCPCS: 36415; 72100; J3490; 72131; 80048; 82962; 85025; 95938; 95941; C1713; C1776; G0378; J0690; J1100; J1170; J2250; J2405; J2704; J3010; J3370; J3480; C1762; J0330; J2370; J2800; J7120

== ENCOUNTER → 2019-12-17 | Outpatient (CLI) | payer OTHER ==
[~2019-12-17] MED LIST changes: +ACET-1600 PO; +HYDR-3245 PO; +TIZA4TAB2 PO
[2019-12-17 07:25] LABS: BASOPHILS # (AUTO) 0.03 x10^3/uL (0-0.1); BASOPHILS % (AUTO) 0 % (0-1); EOSINOPHILS # (AUTO) 0.23 x10^3/uL (0-0.4); EOSINOPHILS % (AUTO) 3 % (1-7); LYMPHOCYTES # (AUTO) 2.19 x10^3/uL (1-3.4); LYMPHOCYTES % (AUTO) 30 % (22-44); MD NO; MEAN CORPUSCULAR HEMOGLOBIN 29.8 pg (27.0-34.8); MEAN CORPUSCULAR HGB CONC 32.2 g/dL (32.4-35.8); MEAN CORPUSCULAR VOLUME 92.7 fL (80-100); MEAN PLATELET VOLUME 8.5 fL (7.4-10.4); MONOCYTES # (AUTO) 0.52 x10^3/uL (0.2-0.8); MONOCYTES % (AUTO) 7 % (2-9); NEUTROPHILS # (AUTO) 4.32 x10^3/uL (1.8-6.8); NEUTROPHILS % (AUTO) 59 % (42-75); PLATELET COUNT 292 x10^3/uL (130-400); RED CELL DISTRIBUTION WIDTH 14.2 % (9.6-15.2)
[2019-12-17 07:42] LABS: ALBUMIN 3.9 g/dL (3.4-5.0); ANION GAP 6 mmol/L (5-15); CALCIUM 8.7 mg/dL (8.5-10.1); CHLORIDE 105 mmol/L (98-107)
[2019-12-17 07:45] LABS: % IRON SATURATION 18 % (20-55); ALANINE AMINOTRANSFERASE 31 U/L (12-78); ALKALINE PHOSPHATASE 70 U/L (45-117); BILIRUBIN,TOTAL 0.5 mg/dL (0.2-1.0); CHOL/HDL RATIO 3.1; CHOLESTEROL, TOTAL 153 mg/dL (140-239); CREATININE 0.69 mg/dL (0.55-1.02); HDL CHOL % 32 % (28-40); HDL CHOLESTEROL (DIRECT) 49 mg/dL (40-60); IRON LEVEL 74 mcg/dL (50-170); LDL CHOLESTEROL,CALCULATED 78 mg/dL (54-169); LDL/HDL RATIO 1.6 (0.5-3.0); TOTAL IRON BINDING CAPACITY 412 mcg/dL (250-450); TOTAL PROTEIN 7.4 g/dL (6.4-8.2); TRIGLYCERIDES 131 mg/dL (50-200); VLDL CHOLESTEROL 26 mg/dL (0-25)
[2019-12-17 08:21] LABS: FREE T4 (FREE THYROXINE) 1.28 ng/dL (0.76-1.46)
== END | disposition home or self-care (01) ==
LOC: LAB 07:08
PROVIDERS: ATTEND Internal Medicine Endocrinology, Diabetes & Metabolism
DX: E11.65 Type 2 diabetes mellitus with hyperglycemia (principal); E89.0 Postprocedural hypothyroidism; E78.00 Pure hypercholesterolemia, unspecified; I10 Essential (primary) hypertension; J45.909 Unspecified asthma, uncomplicated; M48.061 Spinal stenosis, lumbar region without neurogenic claudication; R60.9 Edema, unspecified
CPT/HCPCS: 36415; 80053; 80061; 82728; 83036; 83540; 83550; 84439; 84443; 85025

== ENCOUNTER → 2019-12-30 | Outpatient (CLI) | payer OTHER ==
[2019-12-30 08:07] LABS: BASOPHILS # (AUTO) 0.02 x10^3/uL (0-0.1); BASOPHILS % (AUTO) 0 % (0-1); EOSINOPHILS # (AUTO) 0.23 x10^3/uL (0-0.4); EOSINOPHILS % (AUTO) 3 % (1-7); LYMPHOCYTES # (AUTO) 2.09 x10^3/uL (1-3.4); LYMPHOCYTES % (AUTO) 25 % (22-44); MD NO; MEAN CORPUSCULAR HEMOGLOBIN 30.5 pg (27.0-34.8); MEAN CORPUSCULAR HGB CONC 33.1 g/dL (32.4-35.8); MEAN CORPUSCULAR VOLUME 92.1 fL (80-100); MEAN PLATELET VOLUME 9.1 fL (7.4-10.4); MONOCYTES % (AUTO) 7 % (2-9); NEUTROPHILS # (AUTO) 5.48 x10^3/uL (1.8-6.8); NEUTROPHILS % (AUTO) 65 % (42-75); PLATELET COUNT 312 x10^3/uL (130-400); RED CELL DISTRIBUTION WIDTH 14.6 % (9.6-15.2)
[2019-12-30 08:13] LABS: ALANINE AMINOTRANSFERASE 32 U/L (12-78); ALBUMIN 4.2 g/dL (3.4-5.0); ANION GAP 5 mmol/L (5-15); CALCIUM 9.3 mg/dL (8.5-10.1); CHLORIDE 107 mmol/L (98-107); CREATININE 0.73 mg/dL (0.55-1.02)
[2019-12-30 08:15] LABS: ALKALINE PHOSPHATASE 77 U/L (45-117); BILIRUBIN,TOTAL 0.6 mg/dL (0.2-1.0); TOTAL PROTEIN 7.6 g/dL (6.4-8.2)
[2019-12-30 09:27] LABS: MICROSCOPIC INDICATED
== END | disposition home or self-care (01) ==
LOC: LAB 07:42
PROVIDERS: ATTEND Nurse Practitioner Family
DX: E11.65 Type 2 diabetes mellitus with hyperglycemia (principal); R10.12 Left upper quadrant pain; R35.0 Frequency of micturition
CPT/HCPCS: 36415; 80053; 81001; 82150; 83690; 85025; 87086

== ENCOUNTER → 2020-03-18 | Outpatient (CLI) | payer OTHER ==
[2020-03-18 07:36] LABS: BASOPHILS % (AUTO) 1 % (0-1); EOSINOPHILS % (AUTO) 3 % (1-7); LYMPHOCYTES % (AUTO) 24 % (22-44); MEAN CORPUSCULAR HEMOGLOBIN 31.5 pg (27.0-34.8); MEAN CORPUSCULAR HGB CONC 33.1 g/dL (32.4-35.8); MEAN PLATELET VOLUME 8.5 fL (7.4-10.4); MONOCYTES % (AUTO) 7 % (2-9); NEUTROPHILS % (AUTO) 65 % (42-75); PLATELET COUNT 284 x10^3/uL (130-400); RED BLOOD COUNT 4.18 x10^6/uL (3.82-5.3); RED CELL DISTRIBUTION WIDTH 12.9 % (9.6-15.2)
[2020-03-18 07:37] LABS: MD NO
[2020-03-18 07:53] LABS: CHOL/HDL RATIO 3.2; CHOLESTEROL, TOTAL 139 mg/dL (140-239); FREE T4 (FREE THYROXINE) 1.21 ng/dL (0.76-1.46); HDL CHOL % 32 % (28-40); HDL CHOLESTEROL (DIRECT) 44 mg/dL (40-60); LDL CHOLESTEROL,CALCULATED 70 mg/dL (54-169); LDL/HDL RATIO 1.6 (0.5-3.0); TRIGLYCERIDES 124 mg/dL (50-200); VLDL CHOLESTEROL 25 mg/dL (0-25)
[2020-03-18 14:16] LABS: CHLORIDE 105 mmol/L (98-107)
[2020-03-18 14:24] LABS: ALANINE AMINOTRANSFERASE 30 U/L (12-78); ALBUMIN 3.7 g/dL (3.4-5.0); ALKALINE PHOSPHATASE 65 U/L (45-117); ANION GAP 6 mmol/L (5-15); BILIRUBIN,TOTAL 0.5 mg/dL (0.2-1.0); CALCIUM 9.2 mg/dL (8.5-10.1); CREATININE 0.65 mg/dL (0.55-1.02); TOTAL PROTEIN 7.4 g/dL (6.4-8.2)
== END | disposition home or self-care (01) ==
LOC: LAB 07:14
PROVIDERS: ATTEND Internal Medicine Endocrinology, Diabetes & Metabolism
DX: I10 Essential (primary) hypertension (principal); E78.2 Mixed hyperlipidemia; E03.9 Hypothyroidism, unspecified; E66.9 Obesity, unspecified; J45.909 Unspecified asthma, uncomplicated; M48.061 Spinal stenosis, lumbar region without neurogenic claudication; R73.02 Impaired glucose tolerance (oral)
CPT/HCPCS: 36415; 80053; 80061; 83036; 84439; 84443; 85025

== ENCOUNTER 2020-04-07 13:36 | Outpatient (CLI) | payer OTHER ==
[~2020-04-07 13:36] MED LIST changes: -CYCL-259 PO; +CYCL10TA2 PO; -HYDR-3245 PO; +HYDR1TAB53 PO; +METH-639 PO; -METH500T7 PO; -OXYC-302 PO; +OXYC1TAB14 PO
== END 2020-04-07 23:59 | disposition home or self-care (01) ==
LOC: CFH 13:36
PROVIDERS: ATTEND Nurse Practitioner Family
DX: Z12.31 Encounter for screening mammogram for malignant neoplasm of breast (principal)
CPT/HCPCS: 77067

== ENCOUNTER → 2020-07-21 | Outpatient (CLI) | payer OTHER ==
[2020-07-21 07:50] LABS: ALANINE AMINOTRANSFERASE 33 U/L (12-78); ALBUMIN 3.9 g/dL (3.4-5.0); ANION GAP 7 mmol/L (5-15); CALCIUM 8.7 mg/dL (8.5-10.1); CHLORIDE 105 mmol/L (98-107); CREATININE 0.65 mg/dL (0.55-1.02)
[2020-07-21 07:58] LABS: ALKALINE PHOSPHATASE 58 U/L (45-117); BILIRUBIN,TOTAL 0.8 mg/dL (0.2-1.0); CHOLESTEROL, TOTAL 157 mg/dL (140-239); HDL CHOLESTEROL (DIRECT) 46 mg/dL (40-60); TRIGLYCERIDES 143 mg/dL (50-200); VLDL CHOLESTEROL 29 mg/dL (0-25)
[2020-07-21 07:59] LABS: CHOL/HDL RATIO 3.4; FREE T4 (FREE THYROXINE) 1.22 ng/dL (0.76-1.46); HDL CHOL % 29 % (28-40); LDL CHOLESTEROL,CALCULATED 82 mg/dL (54-169); LDL/HDL RATIO 1.8 (0.5-3.0)
== END | disposition home or self-care (01) ==
LOC: LAB 07:24
PROVIDERS: ATTEND Internal Medicine Endocrinology, Diabetes & Metabolism
DX: I10 Essential (primary) hypertension (principal); E78.5 Hyperlipidemia, unspecified; E11.65 Type 2 diabetes mellitus with hyperglycemia; E89.0 Postprocedural hypothyroidism
CPT/HCPCS: 36415; 80053; 80061; 83036; 84439; 84443

== ENCOUNTER → 2020-11-09 | Outpatient (CLI) | payer OTHER | END | disposition home or self-care (01) | LOC: RAD 13:26 | PROVIDERS: ATTEND Orthopaedic Surgery | DX: M65.872 Other synovitis and tenosynovitis, left ankle and foot (principal); M25.572 Pain in left ankle and joints of left foot ==

== ENCOUNTER → 2020-11-30 | Outpatient (CLI) | payer OTHER ==
[2020-11-30 07:20] LABS: BASOPHILS % (AUTO) 1 % (0-1); EOSINOPHILS % (AUTO) 3 % (1-7); LYMPHOCYTES % (AUTO) 26 % (22-44); MEAN CORPUSCULAR HEMOGLOBIN 32.5 pg (27.0-34.8); MEAN CORPUSCULAR HGB CONC 33.9 g/dL (32.4-35.8); MEAN PLATELET VOLUME 8.5 fL (7.4-10.4); MONOCYTES % (AUTO) 7 % (2-9); NEUTROPHILS % (AUTO) 64 % (42-75); PLATELET COUNT 312 x10^3/uL (130-400); RED BLOOD COUNT 4.12 x10^6/uL (3.82-5.3); RED CELL DISTRIBUTION WIDTH 12.7 % (9.6-15.2)
[2020-11-30 07:30] LABS: ALBUMIN 3.8 g/dL (3.4-5.0); CALCIUM 9.3 mg/dL (8.5-10.1)
[2020-11-30 07:40] LABS: ANION GAP 4 mmol/L (5-15); CHLORIDE 103 mmol/L (98-107)
[2020-11-30 07:41] LABS: ALANINE AMINOTRANSFERASE 28 U/L (12-78); ALKALINE PHOSPHATASE 64 U/L (45-117); BILIRUBIN,TOTAL 0.7 mg/dL (0.2-1.0); CHOL/HDL RATIO 3.8; CHOLESTEROL, TOTAL 155 mg/dL (140-239); CREATININE 0.63 mg/dL (0.55-1.02); FREE T4 (FREE THYROXINE) 1.18 ng/dL (0.76-1.46); HDL CHOL % 26 % (28-40); HDL CHOLESTEROL (DIRECT) 41 mg/dL (40-60); LDL CHOLESTEROL,CALCULATED 82 mg/dL (54-169); TOTAL PROTEIN 7.4 g/dL (6.4-8.2); TRIGLYCERIDES 162 mg/dL (50-200); VLDL CHOLESTEROL 32 mg/dL (0-25)
== END | disposition home or self-care (01) ==
LOC: LAB 07:03
PROVIDERS: ATTEND Family Medicine
DX: I10 Essential (primary) hypertension (principal); E03.9 Hypothyroidism, unspecified; E78.5 Hyperlipidemia, unspecified
CPT/HCPCS: 36415; 80053; 80061; 83036; 84439; 84443; 84481; 85025